=== PATIENT | female | born 1950 | race Caucasian/White ===

== ENCOUNTER 2021-03-28 15:32 | Emergency (ER) | payer BC, SELFPAY ==
--- NOTE | ~2021-03-28 | XR_ITS ---
EXAMINATION: XR chest 1V CLINICAL INFORMATION: Reason for Exam cough COMPARISON: Chest radiograph 07/05/2009 TECHNIQUE: One view of the chest XR/XR chest 1V FINDINGS/IMPRESSION: Clear lungs. No pneumothorax. No pleural effusion. Borderline enlarged cardiac silhouette, unchanged.
[2021-03-28 16:17] VITALS: BP 202/86; PULSE 63; RESP 14; TEMP 36.6; O2SAT 100; BMI 32.9
[2021-03-28 19:39] LABS: COVID-19 Test Positive (Negative); IDNOW Serial# 9DD0AD1C
--- NOTE | 2021-03-28 20:50 | ED.GENADULT ---
HPI - General Adult General Chief complaint: General Medical Stated complaint: Covid symptoms Time Seen by Provider: 03/28/21 21:09 Source: patient Mode of arrival: ambulatory Limitations: no limitations History of Present Illness HPI narrative: Patient presents with upper respiratory symptoms. Requesting COVID-19 testing after positive COVID-19 contact. Radiation: non-radiation Severity: mild Relieving factors: none Exacerbating factors: none Associated symptoms: cough, headaches and other (Congestion) Treatments prior to arrival: none Related Data Allergies Allergy/AdvReac Type Severity Reaction Status Date / Time From Versed Allergy Unknown UNKNOWN Uncoded 12/15/19 14:36 Review of Systems Review of Systems: Constitutional: No Fever, positive Chills, positive fatigue, positive Malaise ENT/Mouth: positive sore throat, positive runny nose Eyes: No Discharge Cardiovascular: No Chest Pain, No SOB Respiratory: Positive Cough, No Sputum, No Wheezing, No Smoke Exposure, No Dyspnea Gastrointestinal: No Nausea, No Vomiting, No Diarrhea Genitourinary: no irregular bleeding, No Dysuria, No Urinary Frequency, No Hematuria, No Urinary Incontinence, No Urgency, No Flank Pain, Musculoskeletal: positive Myalgia Skin: No rash Neuro: Positive Headache Yes all other systems are reviewed and are negative [facility] Past Medical History Attestation statement: The following information was validated with the patient. Source: old records reviewed Social History Social History Advance Directives: No Advance Directives Information Provided: No Physical Exam Vital Signs: Vital Signs: Last Vital Signs Temp 97.8 F 03/28/21 16:17 Pulse 63 03/28/21 21:50 Resp 17 03/28/21 21:50 BP 164/79 H 03/28/21 21:50 Pulse Ox 99 03/28/21 21:50 BMI result Body Mass Index 32.9 Appearance: Alert. Oriented X3. No acute distress. Eyes: Pupils equal, round and reactive to light. EOMI. Sclera nonicteric. ENT: Pharynx normal. Neck: Normal inspection. Neck supple. CVS: Normal heart rate and rhythm. Pulses normal. Respiratory: No respiratory distress. Breath sounds normal. Abdomen: Soft and nontender. Skin: Skin warm and dry. Normal skin color. Normal skin turgor. Extremities: No lower extremity edema. Gait well-balanced well coordinated. Neuro: No motor deficit. No sensory deficit. Cranial nerves 2-12 intact. Course Course Course Narrative: 8:53 p.m. 70-year-old female presents with upper respiratory symptoms after COVID-19 positive contacts. COVID 19 test is positive. Patient is afebrile, speaking in complete sentences, appears nontoxic, even unlabored respirations, O2 sat 99% on room air, blood pressure is elevated however patient does not have a history of hypertension. Patient will follow-up with primary care physician for further follow-up as this may be incidental to her stressful day waiting in the emergency department for COVID-19 test. Patient verbalized understanding of and agrees to plan of care discharge home. Medical Decision Making Differential Diagnosis Differential Diagnosis: COVID-19, influenza, pneumonia Medical Records Medical records reviewed: Yes I reviewed the patient's medical records. Lab Data Lab results reviewed: Yes I reviewed the patient's lab results. Labs: Lab Results 03/28/21 Range/Units 19:14 COVID-19 ([facility]) Positive A (Negative) COVID-19 Clin Com See Note Imaging Data Chest x-ray: Attestation: I personally reviewed and interpreted this imaging study as follows: Radiologist's impression: EXAMINATION: ?XR chest 1V CLINICAL INFORMATION: Reason for Exam cough COMPARISON: Chest radiograph? 07/05/2009 TECHNIQUE: One view of the chest XR/XR chest 1V FINDINGS/IMPRESSION: ? Clear lungs. ? No pneumothorax. No pleural effusion. ? Borderline enlarged cardiac silhouette, unchanged. ? Discharge Plan Discharge Clinical Impression: COVID-19 Patient Disposition: Home, Self-Care Instructions: Covid-19 Viral Syndrome and Novel Coronavirus (ED) Hey/Ath, COVID-19 (Coronavirus Disease 2019) (ED) Additional Instructions: You were evaluated for symptoms consistent with COVID-19. Your test results are positive. Please use supportive measures. Alternate Tylenol 650 mg every 6 hours as needed and Motrin 600 mg every 6 hours as needed for pain management, muscle aches and fever control. Drink plenty of fluids. Maintain social isolation for State and Federal guidelines Symptoms worsen please return to the primary care physician or emergency department for evaluation. Thank you for choosing this emergency department for evaluation. Please follow-up with primary care physician as needed. Return to the emergency department for any new, concerning, or worsening symptoms. Stand Alone Forms: Work/School Release Interventions: ED Discharge Assessment Last Done: 03/28/21 21:59 Discharge Date/Time: 03/28/21 22:16
[2021-03-28 21:50] VITALS: BP 164/79; PULSE 63; RESP 17; O2SAT 99
== END 2021-03-28 22:16 | disposition home or self-care (01) ==
PROVIDERS: Emergency Provider Emergency Medicine Emergency Medical Services; PCP Internal Medicine
DX: U07.1 COVID-19 (principal); R51.9 Headache, unspecified; R05.9 Cough, unspecified; Z79.899 Other long term (current) drug therapy
CPT/HCPCS: 36415; 71045; 87635; 99283